=== PATIENT | female | born 1975 | race Asian ===

== ENCOUNTER → 2018-04-01 | Outpatient (CLI) | payer BC ==
[~2018-04-01] MED LIST: AMLO5TAB88 PO; BACITRACIN 50,000 UNITS/VIAL ONE; BUPIVACAINE HCL/EPINEPHRINE 0.5%/0.0005 30ML ONE; BUPIVACAINE/EPINEPH/PF 0.25%/0.0005 10ML ONE; CEFAZOLIN SODIUM 1000MG/VIAL ONE; DEXAMETHASONE 4MG/ML 1ML VIAL ONE; EPHEDRINE SULFATE 50MG/ML VIAL ONE; FENTANYL CITRATE/PF 50MCG/ML 2ML VIAL ONE; GENTAMICIN SULF 40MG/ML 2ML VIAL ONE; GLYCOPYRROLATE 0.2 MG/ML 2ML VIAL ONE; HEPARIN 100 UNITS/1 ML VIAL ONE; HEPARIN SODIUM 1,000 UNIT/1ML VIAL IV ONE; METHYLENE BLUE 50 MG/10 ML AMP IV ONE; METO-385 PO; METOCLOPRAMIDE HCL 10MG/2ML VIAL ONE; MIDAZOLAM HCL 2 MG/2 ML VIAL ONE; NEOSTIGMINE METHYLSULFATE 1MG/ML 10 ML VIAL ONE; ONDANSETRON HCL 4MG/2ML INJ ONE; PHENYLEPHRINE HCL 10 MG/ML 1ML (IV VIAL) IV ONE; PROPOFOL 200MG/20ML VIAL IV ONE; ROCURONIUM BROMIDE 10MG/ML VIAL 5ML IV ONE; SKIN ADHESIVE 0.7 GM EA TOP ONE; SODIUM CHLORIDE 0.9% 10ML VIAL ONE; SUCCINYLCHOLINE CHLORIDE 200MG/10ML IV ONE
== END | disposition home or self-care (01) ==
LOC: NM 10:19 → EDUNIT# 14:00
PROVIDERS: ATTEND Surgery
DX: C50.911 Malignant neoplasm of unspecified site of right female breast (principal)
CPT/HCPCS: 78195; A9541

== ENCOUNTER 2018-04-02 06:00 | Inpatient (IN) | payer BC ==
[2018-04-01] VITALS: BP 106/69
[~2018-04-02] VITALS: Ht 162.6 cm; Wt 53.1 kg
[2018-04-02] MEDS ORDERED: LACTATED RINGERS 1,000 ML IV SCH (06:40)
[2018-04-02 06:59] LABS: BASOPHILS % 0.7 % (0.0-2.0); EOSINOPHILS % 3.2 % (0.0-5.0); HEMATOCRIT. 32.4 % (36.0-48.0); HEMOGLOBIN. 10.6 g/dL (12.0-16.0); LYMPHOCYTES % 31.3 % (20.0-50.0); MEAN CORPUSCULAR HEMOGLOBIN 29.8 pg (28.0-32.0); MEAN CORPUSCULAR VOLUME 91.1 fL (81.0-99.0); MEAN PLATELET VOLUME 7.7 fl (7.4-10.4); MONOCYTES % 10.1 % (2.0-8.0); NEUTROPHILS % 54.7 % (40.0-76.0); PLATELET 212 x1000/uL (130-400); RED BLOOD CELL COUNT 3.55 mill/uL (4.2-5.4); RED CELL DISTRIBUTION WIDTH 15.6 % (11.6-14.6)
[2018-04-02 07:04] LABS: UCG SCREEN NEGATIVE
[2018-04-02 07:05] LABS: CHLORIDE 106 mEq/L (98-107)
[2018-04-02 07:08] LABS: PARTIAL THROMBOPLASTIN TIME 27.9 sec (23.4-31.0)
[2018-04-02] MEDS ORDERED: GENTAMICIN SULF 40MG/ML 2ML VIAL ONE ×2 (07:35→09:38)
[2018-04-02] MEDS ORDERED: METO-385 PO (09:31)
[2018-04-02] MEDS ORDERED: AMLO5TAB88 PO (09:31)
[2018-04-02] MEDS ORDERED: BACITRACIN 50,000 UNITS/VIAL ONE (09:39)
[2018-04-02] MEDS ORDERED: NITROGLYCERIN OINT 1GM/INCH UDPKT TD STA (12:16)
[2018-04-02] MEDS ORDERED: SODIUM CHLORIDE 0.9% 1,000 ML IV ONE (13:48)
[2018-04-02] MEDS ORDERED: ONDANSETRON HCL 4MG/2ML INJ IV PRN ×2 (14:00→14:15)
[2018-04-02] MEDS ORDERED: MORPHINE SULFATE 4 MG/ML CPJ (NOT FOR IM USE) IV PRN (14:00)
[2018-04-02] MEDS ORDERED: MEPERIDINE HCL/PF 25MG/ML CPJ IV PRN ×2 (14:00)
[2018-04-02] MEDS ORDERED: ACETAMINOPHEN 325MG TABLET PO PRN (14:15)
[2018-04-02] MEDS ORDERED: MAGNESIUM/ALUMINUM HYDROXIDE/SIMETHICONE 30ML UDC PO PRN (14:15)
[2018-04-02] MEDS ORDERED: ACETAMINOPHEN 650MG SUPP PR PRN (14:15)
[2018-04-02] MEDS ORDERED: HYDROCODONE/ACETAMINOPHEN 5/325MG TABLET PO PRN (14:15)
[2018-04-02] MEDS ORDERED: CLONIDINE 0.1MG TABLET PO PRN (14:15)
[2018-04-02] MEDS ORDERED: MORPHINE SULFATE 10 MG/ML CPJ IV PRN (14:15)
[2018-04-02] MEDS: HYDROMORPHONE HCL/PF 2MG/ML CPJ IV PRN ×2 (14:24→14:38)
[2018-04-02 16:18] VITALS: BP 109/71
[2018-04-02] MEDS ORDERED: SODIUM CHLORIDE 0.9% 1,000 ML IV SCH (18:00)
[2018-04-02] MEDS: HYDROCODONE/ACETAMINOPHEN 5/325MG TABLET PO PRN ×2 (18:01→23:22)
[2018-04-02] MEDS: DEXT 5%/0.45% NACL KCL 20MEQ/L 1,000 ML IV SCH (18:59)
[2018-04-02 20:00] VITALS: BP 100/69
[2018-04-03] VITALS: BP 106/65
[2018-04-03] MEDS: CEFAZOLIN 1000MG PREMIX 50 ML IV SCH ×2 (03:48→12:12)
[2018-04-03 04:00] VITALS: BP 116/71
[2018-04-03] MEDS: HYDROCODONE/ACETAMINOPHEN 5/325MG TABLET PO PRN ×3 (06:30→18:58)
[2018-04-03 07:36] LABS: BASOPHILS % 0.3 % (0.0-2.0); EOSINOPHILS % 0.4 % (0.0-5.0); HEMATOCRIT. 23.4 % (36.0-48.0); HEMOGLOBIN. 7.9 g/dL (12.0-16.0); LYMPHOCYTES % 21.9 % (20.0-50.0); MEAN CORPUSCULAR HEMOGLOBIN 30.5 pg (28.0-32.0); MEAN CORPUSCULAR VOLUME 90.7 fL (81.0-99.0); MEAN PLATELET VOLUME 7.8 fl (7.4-10.4); MONOCYTES % 8.1 % (2.0-8.0); NEUTROPHILS % 69.3 % (40.0-76.0); PLATELET 184 x1000/uL (130-400); RED BLOOD CELL COUNT 2.58 mill/uL (4.2-5.4); RED CELL DISTRIBUTION WIDTH 15.4 % (11.6-14.6)
[2018-04-03 07:54] LABS: CHLORIDE 108 mEq/L (98-107)
[2018-04-03 08:00] VITALS: BP 124/77
[2018-04-03] MEDS: DOCUSATE SODIUM 100MG CAPSULE PO SCH ×2 (09:14→09:17)
[2018-04-03] MEDS: OXYCODONE HCL/ACETAMINOPHEN 5/325MG TABLET PO PRN ×2 (09:16→23:03)
[2018-04-03] MEDS: AMLODIPINE 5MG TABLET PO SCH (10:15)
[2018-04-03] MEDS ORDERED: POTASSIUM CHLORIDE 20MEQ TABLET SR PO NR (11:30)
[2018-04-03 12:00] VITALS: BP 124/84
[2018-04-03 15:36] LABS: TOTAL IRON BINDING CAPACITY 262 ug/dL (250-450)
[2018-04-03 16:00] VITALS: BP 110/71
[2018-04-03 16:29] LABS: HEMATOCRIT 23.3 % (36.0-48.0); HEMOGLOBIN 7.7 g/dL (12.0-16.0); MEAN CORPUSCULAR HEMOGLOBIN 30.2 pg (28.0-32.0); MEAN CORPUSCULAR VOLUME 91.2 fL (81.0-99.0); PLATELET 172 x1000/uL (130-400); RED BLOOD CELL COUNT 2.56 mill/uL (4.2-5.4); RED CELL DISTRIBUTION WIDTH 15.5 % (11.6-14.6)
[2018-04-03 20:00] VITALS: BP 115/79
[2018-04-03] MEDS: DEXT 5%/0.45% NACL KCL 20MEQ/L 1,000 ML IV SCH (21:31)
[2018-04-04 04:00] VITALS: BP 133/85
[2018-04-04 08:00] VITALS: BP 116/82
[2018-04-04] MEDS: DOCUSATE SODIUM 100MG CAPSULE PO SCH (08:05)
[2018-04-04] MEDS: AMLODIPINE 5MG TABLET PO SCH (08:05)
[2018-04-04] MEDS: OXYCODONE HCL/ACETAMINOPHEN 5/325MG TABLET PO PRN (08:06)
[2018-04-04 09:39] LABS: BASOPHILS % 0.7 % (0.0-2.0); EOSINOPHILS % 2.8 % (0.0-5.0); HEMATOCRIT. 24.2 % (36.0-48.0); HEMOGLOBIN. 8.2 g/dL (12.0-16.0); LYMPHOCYTES % 24.7 % (20.0-50.0); MEAN CORPUSCULAR HEMOGLOBIN 30.5 pg (28.0-32.0); MEAN PLATELET VOLUME 7.9 fl (7.4-10.4); MONOCYTES % 7.5 % (2.0-8.0); NEUTROPHILS % 64.3 % (40.0-76.0); PLATELET 185 x1000/uL (130-400); RED BLOOD CELL COUNT 2.69 mill/uL (4.2-5.4); RED CELL DISTRIBUTION WIDTH 15.1 % (11.6-14.6)
[2018-04-04 10:34] LABS: CHLORIDE 106 mEq/L (98-107)
[2018-04-04] MEDS: HYDROCODONE/ACETAMINOPHEN 5/325MG TABLET PO PRN (11:16)
[2018-04-04 11:35] LABS: CHLORIDE 106 mEq/L (98-107)
[2018-04-04 12:11] VITALS: BP 115/81
[2018-04-04 12:22] VITALS: BP 118/81
[2018-04-04] MEDS ORDERED: FERROUS SULFATE 325MG TABLET PO SCH (12:50)
== END 2018-04-04 14:20 | disposition home or self-care (01) | DRG 580 ==
LOC: OR 06:00 → 6EST 06:01
PROVIDERS: ADMIT Surgery; ATTEND Surgery
PROC: 07T50ZZ Resection of Right Axillary Lymphatic, Open Approach (ICD-10-PCS; 2018-04-02)
PROC: 0HHV0NZ Insertion of Tissue Expander into Bilateral Breast, Open Approach (ICD-10-PCS; 2018-04-02)
PROC: 0JH60WZ Insertion of Totally Implantable Vascular Access Device into Chest Subcutaneous Tissue and Fascia, Open Approach (ICD-10-PCS; 2018-04-02)
PROC: 02HV33Z Insertion of Infusion Device into Superior Vena Cava, Percutaneous Approach (ICD-10-PCS; 2018-04-02)
PROC: 0HPU0JZ Removal of Synthetic Substitute from Left Breast, Open Approach (ICD-10-PCS; 2018-04-02)
PROC: 0HPT0JZ Removal of Synthetic Substitute from Right Breast, Open Approach (ICD-10-PCS; 2018-04-02)
PROC: 0HTV0ZZ Resection of Bilateral Breast, Open Approach (ICD-10-PCS; principal; 2018-04-02 07:30)
DX: C50.912 Malignant neoplasm of unspecified site of left female breast (principal); C77.3 Secondary and unspecified malignant neoplasm of axilla and upper limb lymph nodes; C50.911 Malignant neoplasm of unspecified site of right female breast; D64.9 Anemia, unspecified; E87.6 Hypokalemia; I10 Essential (primary) hypertension; Z17.0 Estrogen receptor positive status [ER+]; Z87.891 Personal history of nicotine dependence
CPT/HCPCS: 36415; 71045; 76000; 80048; 81025; 83540; 83550; 85027; 88300; 88305; 88309; 88331; 93005; J0690; J1170; J1580; J3490